=== PATIENT | female | born 1955 | race Asian ===

== ENCOUNTER → 2020-01-23 | Outpatient (CLI) | payer OTHER | END | disposition home or self-care (01) | LOC: CVU 13:30 | PROVIDERS: ATTEND Internal Medicine Cardiovascular Disease | DX: I08.8 Other rheumatic multiple valve diseases (principal); I65.21 Occlusion and stenosis of right carotid artery; R07.89 Other chest pain; I63.9 Cerebral infarction, unspecified | CPT/HCPCS: 93306; 93880 ==